=== PATIENT | male | born 1985 | race African-American/Black ===

== ENCOUNTER 2018-10-06 09:07 | Emergency (ER) | payer SELFPAY ==
[~2018-10-06] VITALS: Ht 188 cm; Wt 131.8 kg
[2018-10-06 09:10] VITALS: Ht 188 cm; Wt 131.8 kg
[2018-10-06] MEDS ORDERED: NORCO 7.5/325 T1 TA1 PO (11:54)
[2018-10-06 12:00] VITALS: BP 148/92
== END 2018-10-06 12:00 | disposition home or self-care (01) ==
LOC: D.ER 09:07
DX: J06.9 Acute upper respiratory infection, unspecified (principal); T16.2XXA Foreign body in left ear, initial encounter; X58.XXXA Exposure to other specified factors, initial encounter; Y93.89 Activity, other specified; Y92.019 Unspecified place in single-family (private) house as the place of occurrence of the external cause